=== PATIENT | female | born 1945 | race Two or more races ===

== ENCOUNTER → 2017-11-29 | Outpatient (CLI) | payer OTHER ==
[~2017-11-29] MED LIST: GLIPIZIDE5 MG; LISINOPRIL10 MG; METFORMIN HCL500 MG
== END | disposition home or self-care (01) ==
LOC: SONOGRAMA 09:04
DX: E04.2 Nontoxic multinodular goiter (principal)

== ENCOUNTER 2021-05-05 09:17 | Outpatient (CLI) | payer OTHER | END 2021-05-05 12:26 | disposition home or self-care (01) | LOC: SONOGRAMA 09:17 | PROVIDERS: ATTEND Pathology Anatomic Pathology & Clinical Pathology | DX: D34 Benign neoplasm of thyroid gland (principal); E04.8 Other specified nontoxic goiter; E04.1 Nontoxic single thyroid nodule ==

== ENCOUNTER 2024-06-29 14:49 | Outpatient (CLI) | payer OTHER | END 2024-06-29 14:51 | disposition home or self-care (01) | LOC: SONOGRAMA 14:49 | PROVIDERS: ATTEND Pathology Anatomic Pathology & Clinical Pathology | DX: E04.1 Nontoxic single thyroid nodule (principal); D34 Benign neoplasm of thyroid gland; E07.89 Other specified disorders of thyroid ==